=== PATIENT | male | born 1985 | race Two or more races ===

== ENCOUNTER 2019-03-10 19:47 | Emergency (ER) | payer OTHER ==
[~2019-03-10] VITALS: Ht 172.7 cm; Wt 95.7 kg
[2019-03-10 19:57] VITALS: Ht 172.7 cm; Wt 95.7 kg
[2019-03-11] VITALS: BP 128/79
== END 2019-03-11 | disposition home or self-care (01) ==
LOC: ED 19:47
PROC: 0HQFXZZ Repair Right Hand Skin, External Approach (ICD-10-PCS; principal; 2019-03-11)
PROC: 3E0234Z Introduction of Serum, Toxoid and Vaccine into Muscle, Percutaneous Approach (ICD-10-PCS; 2019-03-11)
DX: S61.212A Laceration without foreign body of right middle finger without damage to nail, initial encounter (principal); W26.0XXA Contact with knife, initial encounter; Y92.69 Other specified industrial and construction area as the place of occurrence of the external cause
CPT/HCPCS: 90715; A4570

== ENCOUNTER 2019-03-12 18:03 | Emergency (ER) | payer OTHER ==
[~2019-03-12] VITALS: Ht 180.3 cm; Wt 97.7 kg
[2019-03-12 18:23] VITALS: BP 143/89; Ht 180.3 cm; Wt 97.7 kg
== END 2019-03-12 20:42 | disposition home or self-care (01) ==
LOC: ED 18:03
DX: S61.212D Laceration without foreign body of right middle finger without damage to nail, subsequent encounter (principal); W26.8XXD Contact with other sharp object(s), not elsewhere classified, subsequent encounter

== ENCOUNTER 2019-03-19 20:25 | Emergency (ER) | payer OTHER ==
[~2019-03-19] VITALS: Ht 167.6 cm; Wt 107.0 kg
[2019-03-19 20:53] VITALS: BP 130/92; Ht 167.6 cm; Wt 107.0 kg
== END 2019-03-19 22:18 | disposition home or self-care (01) ==
LOC: ED 20:25
DX: S61.212D Laceration without foreign body of right middle finger without damage to nail, subsequent encounter (principal); X58.XXXD Exposure to other specified factors, subsequent encounter